=== PATIENT | male | born 1940 | race Caucasian/White ===

== ENCOUNTER → 2016-07-27 | Outpatient (CLI) | payer BC, OTHER ==
[2016-07-27 13:43] LABS: RATIO 25.4 mcg/mg (0-30.0)
[2016-07-27 13:47] LABS: ESTIMATED AVERAGE GLUCOSE 134 mg/dl; HA1C FLAG Normal (Normal)
[2016-07-27 13:48] LABS: ALT/SGPT 24 U/L (12-78); BLOOD UREA NITROGEN 33 mg/dl (7-18); BUN/CREATININE RATIO 25.5 (10-20); CALCIUM 9.3 mg/dl (8.5-10.1); CARBON DIOXIDE 26 mmol/L (21-32); CHLORIDE 105 mmol/L (98-107); GLUCOSE 121 mg/dl (70-99); POTASSIUM 4.2 mmol/L (3.5-5.1); SODIUM 138 mmol/L (136-145)
[2016-07-27 13:53] LABS: CHOLESTEROL 132 mg/dl (0-200); CHOLESTEROL/HDL RATIO 2.5; HDL CHOLESTEROL 52 mg/dl; TRIGLYCERIDES 85 mg/dl (0-150); VERY LOW DENSITY LIPOPROT CALC 17 mg/dl
== END | disposition home or self-care (01) ==
LOC: C.LABMFLN 09:31
PROVIDERS: ATTEND Family Medicine
DX: Z00.00 Encounter for general adult medical examination without abnormal findings (principal); E78.00 Pure hypercholesterolemia, unspecified; M10.9 Gout, unspecified; I13.11 Hypertensive heart and chronic kidney disease without heart failure, with stage 5 chronic kidney disease, or end stage renal disease; E11.22 Type 2 diabetes mellitus with diabetic chronic kidney disease; N18.5 Chronic kidney disease, stage 5; R60.0 Localized edema

== ENCOUNTER → 2016-08-26 | Outpatient (CLI) | payer BC, OTHER ==
[2016-08-26 13:59] LABS: THYROID STIMULATING HORMONE 3.84 uIu/ml (0.300-4.500)
== END | disposition home or self-care (01) ==
LOC: C.LABMFLN 10:58
PROVIDERS: ATTEND Family Medicine
DX: I48.91 Unspecified atrial fibrillation (principal)

== ENCOUNTER → 2017-08-12 | Outpatient (CLI) | payer BC | END | disposition home or self-care (01) | LOC: C.LABMFLN 15:13 | PROVIDERS: ATTEND Family Medicine | DX: D47.2 Monoclonal gammopathy (principal) ==

== ENCOUNTER → 2017-08-19 | Outpatient (CLI) | payer BC | END | disposition home or self-care (01) | LOC: C.LABMFLN 13:04 | PROVIDERS: ATTEND Family Medicine | DX: D89.89 Other specified disorders involving the immune mechanism, not elsewhere classified (principal) ==